=== PATIENT | female | born 1950 | race Two or more races ===

== ENCOUNTER 2017-11-27 14:41 | Outpatient (CLI) | payer OTHER | END 2017-11-27 14:54 | disposition home or self-care (01) | LOC: MAMO-SONO 14:41 | DX: Z12.31 Encounter for screening mammogram for malignant neoplasm of breast (principal); N60.19 Diffuse cystic mastopathy of unspecified breast ==

== ENCOUNTER 2020-12-07 07:27 | Outpatient (CLI) | payer OTHER | END 2020-12-07 07:40 | disposition home or self-care (01) | LOC: MAMO-SONO 07:27 | PROVIDERS: ATTEND Family Medicine | DX: N60.11 Diffuse cystic mastopathy of right breast (principal); N60.12 Diffuse cystic mastopathy of left breast; Z12.31 Encounter for screening mammogram for malignant neoplasm of breast ==

== ENCOUNTER 2021-04-22 08:00 | Outpatient (CLI) | payer OTHER | END 2021-04-22 08:30 | disposition home or self-care (01) | LOC: PPH VACUNA 08:00 | PROVIDERS: ATTEND Emergency Medicine Pediatric Emergency Medicine | DX: Z23 Encounter for immunization (principal) ==

== ENCOUNTER 2022-12-27 13:23 | Outpatient (CLI) | payer OTHER | END 2022-12-27 13:34 | disposition home or self-care (01) | LOC: NUCLEAR 13:23 | PROVIDERS: ATTEND Family Medicine | DX: M81.0 Age-related osteoporosis without current pathological fracture (principal) ==

== ENCOUNTER 2022-12-28 10:32 | Outpatient (CLI) | payer OTHER | END 2022-12-28 10:38 | disposition home or self-care (01) | LOC: MAMO-SONO 10:32 | PROVIDERS: ATTEND Family Medicine | DX: Z12.31 Encounter for screening mammogram for malignant neoplasm of breast (principal); N60.11 Diffuse cystic mastopathy of right breast; N60.12 Diffuse cystic mastopathy of left breast ==